=== PATIENT | male | born 1940 | race Caucasian/White ===

== ENCOUNTER 2020-01-22 13:46 | Emergency (ER) | payer SELFPAY ==
[~2020-01-22] VITALS: Ht 167.6 cm; Wt 73.5 kg
--- NOTE | 2020-01-22 14:26 | NUR ---
PT REC'D TO ER VIA EMS ETOH WAS WALKING HOME . IV LEFT AC 18G MONITORS APPLIED PT QUIET CALM RESTINGAWAITING EVALUATION BY ER PROVIDER. LABS DRAWN SENT TO LAB
[2020-01-22 15:13] VITALS: BP 117/58
--- NOTE | 2020-01-22 15:14 | NUR ---
PT REFUSED TO BE CLEANNED WANTS TO LEAVE ABLE TO AMB WITHIOUT A [place]SISTANCE TALKING [place] ANSWERING QUESTIONS WANTS TO GO HOME AWAITING EVALUATION BY ER PROVIDER. IV removed. Catheter intact and site benign. Pressure and 4x4 applied to site. No bleeding noted.PT. VERBALIZED UNDERSTANDING OF AFTERCARE INSTRUCTIONS.GAVE POS TOLERATING WELL
== END 2020-01-22 15:15 | disposition home or self-care (01) ==
LOC: ER 14:07
DX: F10.129 Alcohol abuse with intoxication, unspecified (principal); Y90.9 Presence of alcohol in blood, level not specified